=== PATIENT | male | born 1945 | race Caucasian/White ===

== ENCOUNTER 2017-12-09 18:37 | Emergency (ER) | payer MEDICARE, OTHER ==
[~2017-12-09] VITALS: Ht 170.2 cm; Wt 81.6 kg
[2017-12-09] MEDS ORDERED: MULT1TAB73 PO (19:10)
[2017-12-09] MEDS ORDERED: NIAC500T2 PO (19:10)
--- NOTE | 2017-12-09 20:16 | NUR ---
Patient discharged to home in stable conditon. Written and verbal after care instructions given. Patient verbalizes understanding of instructions.
[2017-12-09 20:18] VITALS: BP 158/96
== END 2017-12-09 20:19 | disposition home or self-care (01) ==
LOC: ER 18:40
DX: S13.4XXA Sprain of ligaments of cervical spine, initial encounter (principal); I10 Essential (primary) hypertension; R60.9 Edema, unspecified; Z79.899 Other long term (current) drug therapy; V43.52XA Car driver injured in collision with other type car in traffic accident, initial encounter; Y93.89 Activity, other specified; Y92.410 Unspecified street and highway as the place of occurrence of the external cause; Y99.8 Other external cause status
CPT/HCPCS: 70450; 72125; 99284; A4663